=== PATIENT | female | born 1955 | race Caucasian/White ===

== ENCOUNTER 2020-10-12 08:57 | Day surgery (SDC) | payer MEDICARE, SELFPAY ==
[2020-10-09 11:15] VITALS: BMI 28.4
--- NOTE | 2020-10-10 13:16 | P.CONAN_ITS ---
Documented by User: Jess Gray 10/10/20 13:16 HPI - Anesthesia Eval Consult details Narrative: 65yo F for Upper Endoscopy and Colonoscopy [facility] Past Medical History Medical History (Updated 10/12/20 @ 10:06 by Frannie Holt) ADD (attention deficit disorder) Anxiety and depression GERD (gastroesophageal reflux disease) Renee's thyroiditis Multiple sclerosis Surgical History Surgical History History of bilateral cataract extraction Hx of colonoscopy Social History Social History Patient Tobacco Use Status: Never used Tobacco Use of substances other than those prescribed or required for medical reasons: No Are you DNR?: No Advance Directives: No Advance Directives Information Provided: No Meds Allergies Allergy/AdvReac Type Severity Reaction Status Date / Time nickel Allergy Unknown Verified 10/09/20 11:20 Home Medications Medication Instructions Recorded Confirmed Last Taken Type dextroamphetamine-amphetamine 1 cap PO QAM 10/09/20 10/09/20 Unknown History levothyroxine 1 tab PO DAILY 10/09/20 10/09/20 10/12/20 History lovastatin 1 tab PO DAILY 10/09/20 10/09/20 Unknown History metaxalone 1 tab PO BID-TID 10/09/20 10/09/20 Unknown History venlafaxine 1 cap PO DAILY 10/09/20 10/09/20 10/12/20 History Exam Exam Date and Time: October 10, 2020 1316 Height,Weight and Vital Signs: Height 5 ft 5 in Weight 77.564 kg Assessment and Plan Assessment Anesthesia Assessment: Chart Reviewed Documented by User: Frannie Holt 10/12/20 10:06 [facility] Past Medical History Medical History (Updated 10/12/20 @ 10:06 by Frannie Holt) ADD (attention deficit disorder) Anxiety and depression GERD (gastroesophageal reflux disease) Renee's thyroiditis Multiple sclerosis Family History Family history of problems with anesthesia: No Surgical History Surgical History History of bilateral cataract extraction Hx of colonoscopy History of Problems with Anesthesia: Yes (N&V during eye block for cataract surgery. Needed [place]) Social History Social History Patient Tobacco Use Status: Never used Tobacco Use of substances other than those prescribed or required for medical reasons: No Are you DNR?: No Advance Directives: No Advance Directives Information Provided: No Meds Allergies Allergy/AdvReac Type Severity Reaction Status Date / Time nickel Allergy Unknown Verified 10/09/20 11:20 Home Medications Medication Instructions Recorded Confirmed Last Taken Type dextroamphetamine-amphetamine 1 cap PO QAM 10/09/20 10/09/20 Unknown History levothyroxine 1 tab PO DAILY 10/09/20 10/09/20 10/12/20 History lovastatin 1 tab PO DAILY 10/09/20 10/09/20 Unknown History metaxalone 1 tab PO BID-TID 10/09/20 10/09/20 Unknown History venlafaxine 1 cap PO DAILY 10/09/20 10/09/20 10/12/20 History Exam Height,Weight and Vital Signs: Vital Signs Temp Pulse Resp BP Pulse Ox 10/12/20 09:37 97.5 F 78 16 140/82 H 96 Airway Mallampati Class: II TM Dist: >3cm Neck ROM: Full Loose/Missing/Broken Teeth: Yes (Broken caps back left) Heart: RRR Lungs: CTAB Assessment and Plan Assessment Anesthesia Assessment: Anesthesia Plan Discussed and Chart Reviewed Final Anesthetic Review NPO: Yes ASA Class: II Final Preanesthetic Review: No Changes in Pt Med Stat, Meds/Allgs Chart Reviewed, Consent Obtained/Reviewed and Anes Risks/Benef Reviewed Patient Risk: Intermediate Procedure Risk: Low Assessment/Block/Sedation in SS: Assess/Block/Sedation-SS Anesthetic Plan Anesthetic Plan: MAC: Disposition: Standard PACU
[2020-10-12 09:34] VITALS: BMI 29.1
[2020-10-12 09:37] VITALS: BP 140/82; PULSE 78; RESP 16; TEMP 36.4; O2SAT 96
[2020-10-12] MEDS: Lactated Ringers 1,000 ML 100 ML IVCONT (09:44)
--- NOTE | 2020-10-12 10:53 | PM.OP ---
Brief Operative Note Date of Service: 10/12/20 Pre-op diagnosis: screeninggerd Post-op diagnosis: same Surgeon: Jese Overton Anesthesia: MAC Was an Industrial Custodian used for this Procedure?: No Estimated blood loss (mL): 0 Pathology: other (see notes) Condition: stable
--- NOTE | 2020-10-12 10:54 | MHC.SHP ---
Pre-Procedural Eval Section A The patient is an INPATIENT: No Changes since office visit: No Cold of Flu in the past 2 weeks, No New Medical Problems, No Changes in Medication and No Patient answered all questions The History & Physical has been completed within 30 days and I have reviewed it.: Yes Section B Chief Complaint: reflux,screening Allergies: Allergies Allergy/AdvReac Type Severity Reaction Status Date / Time nickel Allergy Unknown Verified 10/09/20 11:20 Plan I have reviewed the history and physical and performed a pertinent physical examination on my patient. No changes have occurred unless specified.
[2020-10-12 10:55] VITALS: BP 139/74; PULSE 78; RESP 10; TEMP 36.5; O2SAT 97
[2020-10-12 11:10] VITALS: BP 123/65; PULSE 70; RESP 18; O2SAT 99
[2020-10-12 11:25] VITALS: BP 134/73; PULSE 68; RESP 18; TEMP 36.4; O2SAT 98
--- NOTE | 2020-10-12 12:08 | OP_ITS ---
SURGEON: Jese Overton MD INDICATIONS: Gastroesophageal reflux disease and colon cancer screening. PREOPERATIVE DIAGNOSIS: POSTOPERATIVE DIAGNOSIS: PROCEDURE PERFORMED: Upper endoscopy with biopsy, colonoscopy to the cecum. ESTIMATED BLOOD LOSS: COMPLICATIONS: ANESTHESIA: ASSISTANTS: SPECIMENS: MEDICATIONS: Monitored anesthesia care. DESCRIPTION OF PROCEDURE: History and physical performed. The risks and benefits of the procedure were explained to the patient. Informed consent was obtained. The patient was placed in left lateral decubitus position. The Olympus video gastroscope was introduced into the esophagus, stomach, and duodenum. Examination was performed and the scope was removed. A digital rectal exam was performed. The Olympus pediatric video colonoscope was introduced into the rectum and advanced to the cecum without difficulty. The cecum was identified by transillumination, palpation, and identification of ileocecal valve. Examination was performed and the scope was removed. She tolerated both procedures well, was returned to recovery area in stable condition. FINDINGS: UPPER ENDOSCOPY: Esophagus: The esophagus was normal. Biopsies were obtained from the EG junction. Stomach: The stomach showed no evidence of masses, ulcers, or polyps. Antral biopsies were obtained. Duodenum: The bulb and second portion were normal. COLONOSCOPY: The terminal ileum was not examined. The visualized colonic mucosa was normal. There was a large amount of liquid stool, which could not be suctioned due to undigested food. This was present in the cecum, right colon, and sigmoid, limiting the examination. No polyps were identified. Retroflexed examination was normal. IMPRESSION: 1. Gastroesophageal reflux disease. 2. Negative screening colonoscopy. RECOMMENDATIONS: 1. Follow up the biopsy results. 2. Repeat colonoscopy should be considered in a shorter time interval such as 2 years because of limitations of today's prep. MD KEILA Ortez/JOAQUINA / [id number] MTDJean
== END 2020-10-12 12:30 | disposition home or self-care (01) ==
PROVIDERS: PCP Family Medicine; Visit Provider Internal Medicine Gastroenterology
PROC: (CPT 43239; principal; 2020-10-12 10:00)
DX: Z12.11 Encounter for screening for malignant neoplasm of colon (principal); K21.9 Gastro-esophageal reflux disease without esophagitis; G35 Multiple sclerosis; F32.9 Major depressive disorder, single episode, unspecified; F98.8 Other specified behavioral and emotional disorders with onset usually occurring in childhood and adolescence; E06.3 Autoimmune thyroiditis; Z79.899 Other long term (current) drug therapy
CPT/HCPCS: 43239; G0121; 88305; 88342; J3010

== ENCOUNTER → 2021-08-27 11:24 | Outpatient (BNVA) | payer MEDICARE, SELFPAY | PROVIDERS: PCP Family Medicine; Visit Provider Surgery Vascular Surgery | DX: I83.11 Varicose veins of right lower extremity with inflammation (principal) | CPT/HCPCS: 99202 ==

== ENCOUNTER 2021-10-02 10:29 | Outpatient (REF) | payer MEDICARE, SELFPAY ==
--- NOTE | ~2021-10-02 | US_ITS ---
EXAMINATION: US VENOUS DOPPLER LOWER EXTREMITY, BILATERAL CLINICAL INFORMATION: Right lower extremity varicose veins. COMPARISON: None TECHNIQUE: Color-flow triplex imaging and compression Doppler were performed to evaluate both the deep and the superficial systems bilaterally. To evaluate the superficial system, the examination was performed in the upright position. Color-flow Doppler ultrasound and compression ultrasound were utilized. In addition, maneuvers were utilized to demonstrate reflux. FINDINGS: SUPERFICIAL ULTRASOUND WITH DOPPLER OF RIGHT LOWER EXTREMITY Great Saphenous Vein: Saphenofemoral junction: 0.7 cm Maximum diameter: 0.7 cm Minimum diameter: 0.2 cm Reflux: There is segmental reflux at the mid calf up to 2.2 seconds. Duplicated Medial Great Saphenous Vein: Maximum diameter: 0.4 cm at the junction Reflux: None Duplicated Lateral Great Saphenous Vein: Diameter: None imaged Reflux: None Small Saphenous Vein: Proximal calf: 0.1 cm Distal calf: 0.2 cm Reflux: No evidence of reflux. Vein of Giacomini: None imaged Perforators: Location: Mid calf measuring 4 mm Reflux: None Varicosities: Location: None imaged Reflux: None DEEP VENOUS ULTRASOUND OF THE RIGHT LOWER EXTREMITY: Common Femoral Vein: Compressible, normal respiratory variation and augmented flow. Femoral Vein: Compressible, normal color flow and augmentation. Popliteal Vein: Compressible, normal augmentation. Deep Reflux: There is no evidence of reflux in the deep system in either the common femoral vein or the popliteal vein. Gómez's Cyst: There is no evidence of a Gómez's cyst. SUPERFICIAL ULTRASOUND WITH DOPPLER OF LEFT LOWER EXTREMITY Great Saphenous Vein: Saphenofemoral junction: 0.9 cm Maximum diameter: 0.9 cm Minimum diameter: 0.2 cm Reflux: There is reflux from the mid thigh to below the knee measuring up to 3 seconds. Duplicated Medial Great Saphenous Vein: Maximum diameter: None imaged Reflux: None Duplicated Lateral Great Saphenous Vein: Diameter: None imaged Reflux: None Small Saphenous Vein: Proximal calf: 0.2 cm Distal calf: 0.3 cm Reflux: No evidence of reflux. Vein of Giacomini: None imaged Perforators: Location: None imaged Reflux: None Varicosities: Location: None imaged Reflux: None DEEP VENOUS ULTRASOUND OF THE LEFT LOWER EXTREMITY: Common Femoral Vein: Compressible, normal respiratory variation and augmented flow. Femoral Vein: Compressible, normal color flow and augmentation. Popliteal Vein: Compressible, normal augmentation. Deep Reflux: There is no evidence of reflux in the deep system in either the common femoral vein or the popliteal vein. Gómez's Cyst: There is no evidence of a Gómez's cyst. US/US venous duplex LE BI IMPRESSION: 1. Segmental reflux within the right great saphenous vein at the mid calf. 2. Segmental reflux within the left great saphenous vein from the mid thigh to below the knee. 3. No evidence of DVT or deep venous insufficiency.
== END 2021-10-02 10:30 | disposition home or self-care (01) ==
LOC: HO.US 10:29
PROVIDERS: Visit Provider Surgery Vascular Surgery
DX: I83.11 Varicose veins of right lower extremity with inflammation (principal)
CPT/HCPCS: 93970

== ENCOUNTER → 2021-10-08 11:21 | Outpatient (BNVA) | payer MEDICARE, SELFPAY | PROVIDERS: PCP Family Medicine; Visit Provider Surgery Vascular Surgery | DX: I83.11 Varicose veins of right lower extremity with inflammation (principal) | CPT/HCPCS: 99212 ==

== ENCOUNTER 2022-09-12 10:36 | Day surgery (SDC) | payer MEDICARE, SELFPAY ==
--- NOTE | 2022-09-11 10:11 | P.CONAN_ITS ---
Documented by User: Jess Gray NP 09/11/22 10:12 HPI - Anesthesia Eval Consult details Narrative: 67yo F for Colonoscopy PMFSH Active Problems Active Problems: All Active Problems (Updated 08/27/21 @ 12:14 by Xander Cook MD) Varicose veins of right lower extremity with inflammation (Acute) Past Medical History Medical History ADD (attention deficit disorder) Anxiety and depression GERD (gastroesophageal reflux disease) Renee's thyroiditis Multiple sclerosis Family History Family history of problems with anesthesia: No Surgical History Surgical History History of bilateral cataract extraction Hx of colonoscopy History of Problems with Anesthesia: Yes (N&V during eye block for cataract surgery. Needed [place]) Social History Social History Patient Tobacco Use Status: Never used Tobacco Meds Allergies Allergy/AdvReac Type Severity Reaction Status Date / Time nickel Allergy Unknown Verified 10/08/21 11:27 alex silver Allergy Unknown Uncoded 09/11/22 12:15 Home Medications Medication Instructions Recorded Confirmed Last Taken Type dextroamphetamine-amphetamine ER 1 cap PO QAM 10/09/20 10/09/20 Unknown History 20 mg 24hr capsule,extend release levothyroxine 50 mcg tablet 1 tab PO DAILY 10/09/20 10/09/20 10/12/20 History lovastatin 40 mg tablet 1 tab PO DAILY 10/09/20 10/09/20 Unknown History metaxalone 400 mg tablet 1 tab PO BID-TID 10/09/20 10/09/20 Unknown History venlafaxine 150 mg 1 cap PO DAILY 10/09/20 10/09/20 10/12/20 History capsule,extended release 24 hr azithromycin 250 mg tablet 0 mg PO 08/27/21 Unknown History pantoprazole 40 mg tablet,delayed 40 mg PO DAILY 08/27/21 Unknown History release dextroamphetamine-amphetamine 5 mg 1 - 2 tab PO DAILY PRN 10/08/21 Unknown History tablet levothyroxine 75 mcg tablet 75 mcg PO DAILY 10/08/21 Unknown History lovastatin 20 mg tablet 20 mg PO DAILY 10/08/21 Unknown History Exam Exam Date and Time: September 11, 2022 1011 Assessment and Plan Assessment Anesthesia Assessment: Chart Reviewed Final Anesthetic Review Family History of Problems with Anesthesia: No History of Problems with Anesthesia: Yes (N&V during eye block for cataract surgery. Needed [place]) Documented by User: Brandon Rosales MD 09/12/22 09:52 [facility] Past Medical History Medical History ADD (attention deficit disorder) Anxiety and depression GERD (gastroesophageal reflux disease) Renee's thyroiditis Multiple sclerosis Surgical History Surgical History History of bilateral cataract extraction Hx of colonoscopy Social History Social History Patient Tobacco Use Status: Never used Tobacco Meds Allergies Allergy/AdvReac Type Severity Reaction Status Date / Time nickel Allergy Unknown Verified 10/08/21 11:27 alex silver Allergy Unknown Uncoded 09/11/22 12:15 Home Medications Medication Instructions Recorded Confirmed Last Taken Type dextroamphetamine-amphetamine ER 1 cap PO QAM 10/09/20 10/09/20 Unknown History 20 mg 24hr capsule,extend release levothyroxine 50 mcg tablet 1 tab PO DAILY 10/09/20 10/09/20 10/12/20 History lovastatin 40 mg tablet 1 tab PO DAILY 10/09/20 10/09/20 Unknown History metaxalone 400 mg tablet 1 tab PO BID-TID 10/09/20 10/09/20 Unknown History venlafaxine 150 mg 1 cap PO DAILY 10/09/20 10/09/20 10/12/20 History capsule,extended release 24 hr azithromycin 250 mg tablet 0 mg PO 08/27/21 Unknown History pantoprazole 40 mg tablet,delayed 40 mg PO DAILY 08/27/21 Unknown History release dextroamphetamine-amphetamine 5 mg 1 - 2 tab PO DAILY PRN 10/08/21 Unknown History tablet levothyroxine 75 mcg tablet 75 mcg PO DAILY 10/08/21 Unknown History lovastatin 20 mg tablet 20 mg PO DAILY 10/08/21 Unknown History Exam Airway Mallampati Class: II TM Dist: >3cm Neck ROM: Limited Heart: rrr Lungs: cta Assessment and Plan Assessment Anesthesia Assessment: Anesthesia Plan Discussed Final Anesthetic Review ASA Class: III Final Preanesthetic Review: No Changes in Pt Med Stat, Meds/Allgs Chart Reviewed, Consent Obtained/Reviewed and Anes Risks/Benef Reviewed Patient Risk: Intermediate Procedure Risk: Low Anesthetic Plan Anesthetic Plan: MAC: and Agree w/ Assess. and Plan Disposition: Standard PACU
[2022-09-12 11:04] VITALS: BP 144/84; PULSE 97; RESP 20; TEMP 36.2; O2SAT 97; BMI 28.3
--- NOTE | 2022-09-12 11:26 | MHC.SHP ---
Pre-Procedural Eval Section A Date of Service: 09/12/22 The patient is an INPATIENT: No Changes since office visit: No Cold of Flu in the past 2 weeks, No New Medical Problems, No Changes in Medication and No Patient answered all questions The History & Physical has been completed within 30 days and I have reviewed it.: Yes Section B Chief Complaint: screening Allergies: Allergies Allergy/AdvReac Type Severity Reaction Status Date / Time nickel Allergy Unknown Verified 10/08/21 11:27 alex silver Allergy Unknown Uncoded 09/11/22 12:15 Plan I have reviewed the history and physical and performed a pertinent physical examination on my patient. No changes have occurred unless specified. Time Spent With Patient Time: Total time managing care of this patient today ____ minutes.
[2022-09-12 12:13] VITALS: BP 138/71; PULSE 75; RESP 16; TEMP 36.7; O2SAT 99
--- NOTE | 2022-09-12 12:14 | PM.OP ---
Brief Operative Note Date of Service: 09/12/22 Pre-op diagnosis: screening Post-op diagnosis: same Procedure: colonoscopy Surgeon: Jese Overton Anesthesia: MAC Was an Charger Tester used for this Procedure?: No Estimated blood loss (mL): 0 Pathology: none sent Condition: stable Disposition: PACU
[2022-09-12 12:28] VITALS: BP 146/75; PULSE 76; RESP 18; TEMP 36.8; O2SAT 99
--- NOTE | 2022-09-12 13:16 | OP_ITS ---
DATE OF SERVICE: 09/12/2022 SURGEON: Jese Overton MD INDICATIONS: Colon cancer screening and incomplete prep on last colonoscopy in 2020. PREOPERATIVE DIAGNOSIS: POSTOPERATIVE DIAGNOSIS: PROCEDURE PERFORMED: Colonoscopy to the cecum. ESTIMATED BLOOD LOSS: COMPLICATIONS: ANESTHESIA: Monitored anesthesia care. ASSISTANTS: SPECIMENS: DESCRIPTION OF PROCEDURE: History and physical was performed. The risks and benefits of the procedure were explained to the patient. Informed consent was obtained. The patient was placed in the left lateral decubitus position. A digital rectal exam was performed and was found to be normal. The Olympus pediatric video colonoscope was introduced into the rectum and advanced to the cecum without difficulty. The cecum was identified by translumination, palpation, and identification of the ileocecal valve. Examination was performed. The scope was removed. She tolerated the procedure well and was returned to the recovery area in stable condition. FINDINGS: There was some residual stool in the cecum and right colon. This was washed and suctioned, but frequently clogged the scope and limited sensitivity examination for detection of small polyps. Overall, the prep was much better than her last bowel prep. The visualized colonic mucosa was within normal limits without evidence of masses or ulcers. No polyps were identified. Retroflexed examination showed small internal hemorrhoids. IMPRESSION: Normal colonoscopy. RECOMMENDATION: 1. Follow up as needed. 2. Consider repeat colonoscopy in 5 years based on limitation of today's prep. MD KEILA Ortez/OJAQUINA / [id number]
== END 2022-09-12 13:05 | disposition home or self-care (01) ==
PROVIDERS: PCP Family Medicine; Visit Provider Internal Medicine Gastroenterology
PROC: 0DJD8ZZ Inspection of Lower Intestinal Tract, Via Natural or Artificial Opening Endoscopic (ICD-10-PCS; CPT 45378; principal; 2022-09-12 11:50)
DX: Z12.11 Encounter for screening for malignant neoplasm of colon (principal); K64.8 Other hemorrhoids; K59.00 Constipation, unspecified; K21.9 Gastro-esophageal reflux disease without esophagitis; Z79.899 Other long term (current) drug therapy
CPT/HCPCS: G0121

== ENCOUNTER 2023-01-09 08:00 | Day surgery (SDC) | payer MEDICARE, SELFPAY ==
--- NOTE | 2023-01-08 12:15 | HO.ANESPROP2 ---
HPI - Anesthesia Eval Consult details Narrative: 67yo F for Upper Endoscopy PMFSH Active Problems Active Problems: All Active Problems (Updated 08/27/21 @ 12:14 by Xander Cook MD) Varicose veins of right lower extremity with inflammation (Acute) Past Medical History Medical History Anxiety and depression Multiple sclerosis ADD (attention deficit disorder) Renee's thyroiditis GERD (gastroesophageal reflux disease) Family History Family history of problems with anesthesia: No Surgical History Surgical History (Updated 01/08/23 @ 12:24 by Leydi Mike RN) Hx of esophagogastroduodenoscopy History of bilateral cataract extraction Hx of colonoscopy History of Problems with Anesthesia: Yes (N&V during eye block for cataract surgery. Needed [place]) Social History Social History Patient Tobacco Use Status: Never used Tobacco Use of substances other than those prescribed or required for medical reasons: No Advance Directives: No Advance Directives Information Provided: Yes Recently lost weight without trying: No Nutrition Risks: Poor intake 0-25% >4 days Meds Allergies Allergy/AdvReac Type Severity Reaction Status Date / Time nickel Allergy Unknown Verified 10/08/21 11:27 alex silver Allergy Unknown Uncoded 09/11/22 12:15 Home Medications Medication Instructions Recorded Confirmed Last Taken Type dextroamphetamine-amphetamine ER 1 cap PO QAM 10/09/20 10/09/20 Unknown History 20 mg 24hr capsule,extend release lovastatin 40 mg tablet 1 tab PO DAILY 10/09/20 10/09/20 Unknown History metaxalone 400 mg tablet 1 tab PO BID-TID 10/09/20 10/09/20 Unknown History venlafaxine 150 mg 1 cap PO DAILY 10/09/20 10/09/20 10/12/20 History capsule,extended release 24 hr azithromycin 250 mg tablet 0 mg PO 08/27/21 Unknown History pantoprazole 40 mg tablet,delayed 40 mg PO DAILY 08/27/21 Unknown History release dextroamphetamine-amphetamine 5 mg 1 - 2 tab PO DAILY PRN 10/08/21 Unknown History tablet lovastatin 20 mg tablet 20 mg PO DAILY 10/08/21 Unknown History famotidine 20 mg tablet 20 mg PO BEDTIME PRN gerd 01/08/23 01/08/23 Unknown History Exam Exam Date and Time: January 08, 2023 9775 Assessment and Plan Assessment Anesthesia Assessment: Chart Reviewed Final Anesthetic Review Family History of Problems with Anesthesia: No History of Problems with Anesthesia: Yes (N&V during eye block for cataract surgery. Needed [place])
[2023-01-09 08:53] VITALS: BMI 28.3
[2023-01-09 09:07] VITALS: BP 138/83; PULSE 97; RESP 18; TEMP 36.9; O2SAT 94
[2023-01-09] MEDS: Lactated Ringers 1,000 ML 100 ML IVCONT (09:20)
--- NOTE | 2023-01-09 09:33 | MHC.SHP ---
Pre-Procedural Eval Section A Date of Service: 01/09/23 Section B Chief Complaint: gerd,Gastric intestinal metaplasia, unspecified Details of Present Illness: see H&P no changes Relevant Family History (Specify if Yes): No Relevant Social History: None Present Medications: see Short Stay Collaborative assessment Medical History: No relevant PMH Allergies: Allergies Allergy/AdvReac Type Severity Reaction Status Date / Time nickel Allergy Unknown Verified 10/08/21 11:27 alex silver Allergy Unknown Uncoded 09/11/22 12:15 Review of Systems Sugical H&P ROS: Negative: Constitution, Cardiovascular, Respiratory, Neurological, Psychiatric, Hem-Onc, Allergic/Immunologic, Gastrointestinal, Genitourinary, Musculoskeletal, Integumentary, Endocrine and Eyes/Ears/Nose/Throat Exam Surgical H&P Exam: Normal: HEENT, Normal: Heart, Normal: Lungs, Normal: Extremities, Normal: Abdomen, Normal: Skin and Normal: Neurological Plan Diagnosis/Plan: Unchanged I have reviewed the history and physical and performed a pertinent physical examination on my patient. No changes have occurred unless specified. Time Spent With Patient Time: Total time managing care of this patient today ____ minutes.
[2023-01-09 10:16] VITALS: BP 153/90; PULSE 106; RESP 16; TEMP 36.9; O2SAT 96
--- NOTE | 2023-01-09 10:17 | PM.OP ---
Brief Operative Note Date of Service: 01/09/23 Pre-op diagnosis: gerd gastric intestinal metaplasia Post-op diagnosis: same Surgeon: Jese Overton Anesthesia: MAC Was an Sales Agent Food Vending Service used for this Procedure?: No Estimated blood loss (mL): 2 Pathology: other Condition: stable Disposition: PACU
[2023-01-09 10:31] VITALS: BP 146/96; PULSE 81; RESP 16; TEMP 36.6; O2SAT 96
[2023-01-09 10:46] VITALS: BP 143/85; PULSE 79; RESP 14; TEMP 36.6; O2SAT 97
--- NOTE | 2023-01-09 12:36 | OP_ITS ---
DATE OF SERVICE: 01/09/2023 SURGEON: Jese Overton MD PREOPERATIVE DIAGNOSIS: POSTOPERATIVE DIAGNOSIS: PROCEDURE PERFORMED: Upper endoscopy with biopsy. ESTIMATED BLOOD LOSS: COMPLICATIONS: ANESTHESIA: Monitored anesthesia care. ASSISTANTS: SPECIMENS: INDICATIONS FOR PROCEDURE: Gastroesophageal reflux disease, refractory and gastric intestinal metaplasia. PROCEDURE DESCRIPTION: A history and physical were performed. The risks and benefits of the procedure were explained to the patient and informed consent was obtained. The patient placed in left lateral decubitus position. The Olympus video gastroscope was introduced into the esophagus, stomach, and duodenum. Examination performed and scope was removed. She tolerated the procedure well with an episode of stridor that was managed by the Anesthesia Department. FINDINGS: Esophagus: The esophagus showed distal erosive esophagitis involving the last 1 cm of the esophagus. There was a small hiatal hernia. Stomach: The stomach showed on evidence of masses or ulcers. There was a linear erosion on the posterior wall in the antrum. It measured approximately 2 cm x 0.3 cm. There is no bleeding. Biopsies were obtained from the antrum and from throughout the stomach in accordance with the Doreen protocol because of the patient's history of gastric intestinal metaplasia. Duodenum: The bulb and second portion were normal. IMPRESSION: 1. Gastric intestinal metaplasia. 2. Gastroesophageal reflux disease. RECOMMENDATIONS: Follow up the biopsy results. MD KEILA Ortez/MODL / [id number] MTDD
== END 2023-01-09 11:00 | disposition home or self-care (01) ==
PROVIDERS: PCP Family Medicine; Visit Provider Internal Medicine Gastroenterology
PROC: 0DJ08ZZ Inspection of Upper Intestinal Tract, Via Natural or Artificial Opening Endoscopic (ICD-10-PCS; CPT 43235; principal; 2023-01-09 09:10)
DX: K21.9 Gastro-esophageal reflux disease without esophagitis (principal); K31.A0 Gastric intestinal metaplasia, unspecified; K29.50 Unspecified chronic gastritis without bleeding; K20.80 Other esophagitis without bleeding; K44.9 Diaphragmatic hernia without obstruction or gangrene; G35 Multiple sclerosis; E06.3 Autoimmune thyroiditis; F98.8 Other specified behavioral and emotional disorders with onset usually occurring in childhood and adolescence; F41.8 Other specified anxiety disorders; Z79.899 Other long term (current) drug therapy
CPT/HCPCS: 43239; 88305; 88342; J0330